=== PATIENT | female | born 2000 ===

== ENCOUNTER 2022-01-04 05:51 | Inpatient (IN) | payer OTHER ==
[~2022-01-04] VITALS: Ht 132.1 cm; Wt 78.5 kg
[2022-01-04] MEDS ORDERED: PRENATAL CAPLE1 EAC1 (10:26)
== END 2022-01-06 14:55 | disposition home or self-care (01) | DRG 807 ==
LOC: LDR 05:51 → OB/GYN 05:51
PROVIDERS: ADMIT Obstetrics & Gynecology; ATTEND Obstetrics & Gynecology
PROC: 10E0XZZ Delivery of Products of Conception, External Approach (ICD-10-PCS; principal; 2022-01-04)
PROC: 0HQ9XZZ Repair Perineum Skin, External Approach (ICD-10-PCS; 2022-01-04)
PROC: 4A1HXCZ Monitoring of Products of Conception, Cardiac Rate, External Approach (ICD-10-PCS; 2022-01-04)
PROC: 3E033VJ Introduction of Other Hormone into Peripheral Vein, Percutaneous Approach (ICD-10-PCS; 2022-01-04)
PROC: 3E0P7VZ Introduction of Hormone into Female Reproductive, Via Natural or Artificial Opening (ICD-10-PCS; 2022-01-04)
DX: O70.0 First degree perineal laceration during delivery (principal); Z37.0 Single live birth; Z3A.39 39 weeks gestation of pregnancy; Z20.822 Contact with and (suspected) exposure to COVID-19